=== PATIENT | male | born 1975 | race Caucasian/White ===

== ENCOUNTER → 2018-04-20 | Outpatient (CLI) | payer OTHER ==
[~2018-04-20] MED LIST: CRESTOR20 MG PO; LOVAZA1 GM PO; NATURAL E400 IU PO; PHARMASSURE ZIN50 MG PO; PRILOSEC 20MG20 MG PO; PROBIOTIC-MAJOR PO; VITAMIN D31000 IU PO; ZYLOPRIM 100MG100 MG; ZYLOPRIM 300MG300 MG PO; [UNRECOGNIZED DRUG - OTHER]
== END ==
LOC: COL.RAD 04-16 07:30
DX: K75.81 Nonalcoholic steatohepatitis (NASH) (principal)

== ENCOUNTER → 2018-04-27 | Outpatient (CLI) | payer OTHER | LOC: COL.RAD 07:30 | DX: K75.81 Nonalcoholic steatohepatitis (NASH) (principal) | CPT/HCPCS: A9585 ==